=== PATIENT | male | born 1975 | race Caucasian/White ===

== ENCOUNTER → 2021-02-11 | Outpatient (CLI) | payer SELFPAY | LOC: M LABSMTC 13:23 | PROVIDERS: ATTEND Pediatrics | DX: Z20.822 Contact with and (suspected) exposure to COVID-19 (principal) ==

== ENCOUNTER → 2023-10-11 | Outpatient (CLI) | LOC: M SOG 12:55 | PROVIDERS: ATTEND Physician Assistant | DX: M79.632 Pain in left forearm (principal) ==